=== PATIENT | female | born 1995 | race Hispanic/Latino ===

== ENCOUNTER 2017-05-20 19:56 | Inpatient (IN) | payer OTHER ==
[~2017-05-20] VITALS: Ht 152.4 cm; Wt 79.4 kg
[~2017-05-20 19:56] MED LIST: CEFTIN250 MG PO; DETROL LA4 MG PO; DOCUSATE SODIU100 MG PO; LEVAQUIN500 MG PO; NORCO 10-325 T1 EACH PO
[2017-05-20] MEDS ORDERED: ONDANSETRON HCL INJ 2 MG/ML VIAL IV STA (20:34)
[2017-05-20] MEDS ORDERED: MORPHINE SULFATE 4 MG/ML SYR IV STA (20:34)
[2017-05-20] MEDS ORDERED: SODIUM CHLORIDE 0.9% 1000ML 1,000 ML IV STA (20:34)
[2017-05-20 21:13] LABS: BASOPHILS % 0.4 % (0.0-1.0); EOSINOPHILS # (AUTO) 0.1 (0.0-0.4); EOSINOPHILS % 1.3 % (0.0-6.0); HEMATOCRIT 35.6 % (34.2-44.1); HEMOGLOBIN 11.2 g/dL (12.0-16.0); LYMPHOCYTES # (AUTO) 2.1 (1.0-3.2); LYMPHOCYTES % 20.8 % (18.0-39.1); MEAN CORPUSCULAR HEMOGLOBIN 25.8 pg (28-32); MEAN CORPUSCULAR HGB CONC 31.5 g/dL (31-35); MONOCYTES % 9.6 % (4.4-11.3); NEUTROPHILS # (AUTO) 6.8 (2.1-6.9); NEUTROPHILS % 67.6 % (38.7-80.0); PLATELET COUNT 273 x10e3/uL (140-360); RED BLOOD COUNT 4.34 x10e6/uL (3.6-5.1); RED CELL DISTRIBUTION WIDTH 15.4 % (11.7-14.4)
[2017-05-20 21:14] LABS: BILIRUBIN,URINE NEGATIVE (NEGATIVE); COLOR,URINE YELLOW (YELLOW); KETONES,URINE NEGATIVE (NEGATIVE); LEUKOCYTE ESTERASE ,URINE 2+ (NEGATIVE); NITRITE,URINE NEGATIVE (NEGATIVE); URINE UROBILINOGEN 0.2 mg/dL (0.2 - 1)
[2017-05-20 21:15] LABS: CLARITY,URINE CLOUDY (CLEAR); PROTEIN,URINE DIPSTICK 1+ (NEGATIVE)
[2017-05-20 21:17] LABS: PREGNANCY TEST, URINE POSITIVE (NEGATIVE)
[2017-05-20 21:20] LABS: BACTERIA,URINE MANY /HPF; EPITHELIAL CELLS,URINE MODERATE /LPF; WBC,URINE (MAN) 21-50 /HPF (0-5)
[2017-05-20 21:24] LABS: ALANINE AMINOTRANSFERASE 14 IU/L (0-55); ALBUMIN/GLOBULIN RATIO 1.2 (0.8-2.0); ALKALINE PHOSPHATASE 67 IU/L (40-150); ANION GAP 11.6 mmol/L (8-16); BLOOD UREA NITROGEN < 5 mg/dL (7-26); BUN/CREATININE RATIO 8 (6-25); CALCIUM 9.1 mg/dL (8.4-10.2); CARBON DIOXIDE 24 mmol/L (22-29); CHLORIDE 108 mmol/L (98-107); EST GLOMERULAR FILTRATION RATE > 60 ML/MIN (60-); GLUCOSE 88 mg/dL (74-118); POTASSIUM 3.6 mmol/L (3.5-5.1); SODIUM 140 mmol/L (136-145)
[2017-05-20] MEDS ORDERED: CEFTRIAXONE SOD 1 GM VIAL IV ONE (21:30)
--- NOTE | 2017-05-20 23:45 | Diagnostic Imaging Report ---
ADDENDUM #1 No evidence of an intrauterine or ectopic . Recommend following beta hCG trend and follow-up transvaginal ultrasound in 2 weeks as clinically indicated. Signed by: Dr. Nurys Lopez M.D. on 05/21/2017 1:08 AM ORIGINAL REPORT EXAM: US TRANSVAGINAL DATE: 05/20/2017 12:00 AM Time stamp on exam: 2322 hours INDICATION: Kidney problems, pain COMPARISON: None TECHNIQUE: Transverse and sagittal transvaginal russell scale and color doppler sonographic images of the pelvis were obtained. CLINICAL HISTORY: 1 year old A0 Last menstrual period: April 16, 2018 FINDINGS: UTERUS: 7.3 x 4.1 x 4.6 cm, anteverted Fundal fibroid measuring 2.4 x 2.2 x 2.4 cm. Normal appearance of the cervix. ENDOMETRIUM: 0.4 cm Homogeneous echotexture without focal thickening. RIGHT OVARY: 3.1 x 1.2 x 1.9 cm, Normal color flow. No abnormal ovarian cysts or masses. LEFT OVARY: 3.1 x 1.7 x 2.3 cm, Normal color flow. No abnormal ovarian cysts or masses. No adnexal masses. No free fluid in the cul-de-sac. IMPRESSION: Fundal fibroid measuring 2.4 cm, otherwise normal transvaginal pelvic ultrasound. Signed by: Dr. Nurys Lopez M.D. on 05/20/2017 11:42 PM
--- NOTE | 2017-05-20 23:47 | Diagnostic Imaging Report ---
ADDENDUM #1 Addendum: Ureteral jets are present bilaterally in keeping with ureter patency. Signed by: Dr. Shukri Kirby M.D. on 05/21/2017 10:53 AM ORIGINAL REPORT EXAM: Renal Ultrasound DATE: 05/20/2017 12:00 AM Time stamp on exam: 2305 hours INDICATION: Pain COMPARISON: None TECHNIQUE: Transverse and longitudinal sonographic images of the kidneys and bladder were obtained. FINDINGS: RIGHT KIDNEY: 12.1 x 4.2 x 1.7 cm, normal cortical thickness. Echogenicity: Normal Hydronephrosis: None Calculi: None Cyst/Mass: None LEFT KIDNEY: 13.2 x 5 x 2.1 cm, normal cortical thickness. Echogenicity: Normal Hydronephrosis: Moderate Calculi: None Cyst/Mass: None BLADDER: Normal in appearance. IMPRESSION: Moderate left hydronephrosis without cause identified by ultrasound. Signed by: Dr. Nurys Lopez M.D. on 05/20/2017 11:43 PM
[2017-05-21] VITALS (8 sets, daily range): BP systolic 92–107; BP diastolic 51–65
[2017-05-21 01:51] LABS: BILIRUBIN,URINE NEGATIVE (NEGATIVE); KETONES,URINE 1+ (NEGATIVE); LEUKOCYTE ESTERASE ,URINE 2+ (NEGATIVE); URINE UROBILINOGEN 0.2 mg/dL (0.2 - 1)
[2017-05-21 01:52] LABS: CLARITY,URINE CLOUDY (CLEAR); COLOR,URINE YELLOW (YELLOW); NITRITE,URINE POSITIVE (NEGATIVE); PROTEIN,URINE DIPSTICK 2+ (NEGATIVE)
[2017-05-21 02:00] LABS: BACTERIA,URINE MANY /HPF; EPITHELIAL CELLS,URINE FEW /LPF; WBC,URINE (MAN) >50 /HPF (0-5)
[2017-05-21] MEDS ORDERED: SODIUM CHLORIDE 0.9% 1000ML 1,000 ML IV STA (02:28)
[2017-05-21] MEDS: SODIUM CHLORIDE 0.9% 1000ML 1,000 ML IV SCH ×4 (02:28→20:59)
[2017-05-21] MEDS ORDERED: BUTORPHANOL TARTRATE INJ 1 MG/ML VIAL IV ONE (02:30)
[2017-05-21] MEDS ORDERED: ONDANSETRON HCL INJ 2 MG/ML VIAL IV PRN (02:30)
[2017-05-21] MEDS ORDERED: NO MEDS (02:40)
--- OUTSIDE RECORDS SUMMARY | 2017-05-21 02:48 | XMS REPORT ---
Author Author [facility] Address Unknown Phone Unavailable Care Team Providers Care Heel Seat Fitter Machine Name Role Phone REX CASTILLO Unavailable Unavailable Problems This patient has no known problems. Allergies, Adverse Reactions, Alerts This patient has no known allergies or adverse reactions. Medications This patient has no known medications. Results Test Description Test Time Test Comments Text Results Atomic Results Result Comments US TRANSVAGINAL [place] [address] Patient Name: JAY FRANCOIS MR #: [id number] : 1995 Age/Sex: 22/F Req #: [id number] Adm Physician: Ordered by: QUENTIN VILLAGRAN GRANULIZING MACHINE OPERATOR Report #: [id number] Location: ER Room/Bed: Procedure: [id number] US/US TRANSVAGINAL Exam Date: Exam Time: REPORT STATUS: Signed ADDENDUM #1 No evidence of an intrauterine or ectopic . Recommend following beta hCG trend and follow-up transvaginal ultrasound in 2 weeks as clinically indicated. Signed by: Dr. Sandy Lopez M.D. on 05/21/2017 1:08 AM ORIGINAL REPORT EXAM: US TRANSVAGINAL DATE: 05/20/2017 12:00 AM Time stamp on exam: 2322 hours INDICATION: Kidney problems, pain COMPARISON: None TECHNIQUE: Transverse and sagittal transvaginal russell scale and color doppler sonographic images of the pelvis were obtained. CLINICAL HISTORY : 1 year old A0 Last menstrual period: April 16, 2018 FINDINGS: UTERUS: 7.3 x 4.1 x 4.6 cm, anteverted Fundal fibroid measuring 2.4 x 2.2 x 2.4 cm. Normal appearance of the cervix. ENDOMETRIUM: 0.4 cm Homogeneous echotexture without focal thickening. RIGHT OVARY: 3.1 x 1.2 x 1.9 cm, Normal color flow. No abnormal ovarian cysts or masses. LEFT OVARY: 3.1 x 1.7 x 2.3 cm, Normal color flow. No abnormal ovarian cysts or masses. No adnexal masses. No free fluid in the cul-de-sac. IMPRESSION : Fundal fibroid measuring 2.4 cm, otherwise normal transvaginal pelvic ultrasound. Signed by: Dr. Sandy Lopez M.D. on 05/20/2017 11:42 PM Dictated By: SANDY LOPEZ MD [id number] Transcribed By: EFREN on 05/20/17 5932 COPY TO: QUENTIN VILLAGRAN NP US RENAL RETROPERITONEAL COMP [place] [address] Patient Name: JAY FRANCOIS MR #: [id number] : 1995 Age/Sex: 22/F Req #: [id number] Adm Physician: Ordered by: QUENTIN VILLAGRAN GRANULIZING MACHINE OPERATOR Report #: [id number] Location: ER Room/Bed: Procedure: [id number] US/US RENAL RETROPERITONEAL COMP Exam Date: Exam Time: REPORT STATUS: Signed EXAM: Renal Ultrasound DATE: 05/20/2017 12:00 AM Time stamp on exam: 2305 hours INDICATION: Pain COMPARISON: None TECHNIQUE: Transverse and longitudinal sonographic images of the kidneys and bladder were obtained. FINDINGS: RIGHT KIDNEY: 12.1 x 4.2 x 1.7 cm, normal cortical thickness. Echogenicity : Normal Hydronephrosis: None Calculi: None Cyst/Mass: None LEFT KIDNEY: 13.2 x 5 x 2.1 cm, normal cortical thickness. Echogenicity: Normal Hydronephrosis: Moderate Calculi: None Cyst/Mass: None BLADDER: Normal in appearance. IMPRESSION: Moderate left hydronephrosis without cause identified by ultrasound. Signed by: Dr. Sandy Lopez M.D. on 2017 11:43 PM Dictated By: SANDY LOPEZ MD [id number] Transcribed By: EFREN on 05/20/17 [id number] COPY TO: QUENTIN VILLAGRAN NP
[2017-05-21] MEDS: CEFTRIAXONE SOD 1 GM VIAL IV SCH ×2 (08:10→20:59)
--- NOTE | 2017-05-21 09:32 | Consultation ---
DATE OF CONSULTATION: May 21, 2017 UROLOGY CONSULTATION REASON FOR CONSULTATION: Hydronephrosis. HISTORY OF PRESENT ILLNESS: Dian Schreiber is a 22-year-old woman who when she was 18 years old underwent a left dismembered pyeloplasty for clinically significant left ureteropelvic junction obstruction. The patient subsequently had her stent removed. She was followed up for a year, but then failed to follow up subsequently. There is also a history of having a small kidney stone in the past. The patient had noted some gross hematuria and left flank pain for 4 days. She reported to the emergency room and was evaluated. She was found to have a positive test. This was confirmed by serum HCG. Based on the urinalysis result, I required the emergency room physician to get a catheterized urine specimen. The patient was then placed on Rocephin. The patient denies urinary incontinence and denies dysuria. She denies problems with recent urinary tract infections. PAST MEDICAL AND SURGICAL HISTORY: As above. ALLERGIES: NONE KNOWN. CURRENT MEDICATIONS: Please refer to the MAR. REVIEW OF SYSTEMS: As consistent above with the history of present illness and past medical history, and otherwise negative for all other systems. FAMILY HISTORY: Noncontributory to the active urological problems. SOCIAL HISTORY: The patient denies smoking, ethanol or drug use. 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 PHYSICAL EXAMINATION GENERAL: A healthy appearing young man lying in bed and then walking around the room in no apparent distress. VITALS: She is currently afebrile. Vital signs are currently stable. Her temperature maximum is 98.7. ABDOMEN: Soft and nondistended. Nontender except for minimal amount of tenderness in the left flank. No true costovertebral angle tenderness. Kidneys are not palpable. No hepatosplenomegaly. There is a healed left-sided flank scar. For the remaining physical examination systems, please refer to the admission history and physical, as well as the emergency room T-sheet. LABORATORY STUDIES: Renal ultrasound was performed. It revealed moderate left hydronephrosis. No stones or cysts were seen. Bladder was listed as normal, but I do not see documentation of ureteral jets being present. Vaginal ultrasound did not show any intrauterine , and repeat ultrasound was recommended. Blood and urine cultures are pending. White blood cell count is 10,060, hemoglobin low at 11.2 and platelets are normal at 273,000. The patient's creatinine is 0.6. Her serum HCG is 560. Urinalysis on the catheterized specimen showed greater than 50 wbcs, 6-10 rbcs and many bacteria, and nitrite positive urine. ASSESSMENT 1. Left hydronephrosis which may be a chronic finding. 2. Left ureteropelvic junction history. 3. History of punctate left nephrolithiasis. 4. Gross hematuria. 5. Left renal colic. 6. . 7. Anemia. 8. Complicated urinary tract infection. PLAN 1. I will order a repeat ultrasound to check the ureteral jets. 2. Recommend continuing IV antibiotics. 3. Recommend awaiting the urine culture and sensitivity and adjust antibiotics accordingly. 4. If the patient needs intervention, which she may not, then it would involve interventional radiology for a percutaneous nephrostomy. Thank you very much for involving us in the care of your patient. Will be happy to follow her along with you, as well as an outpatient. Job#: [id number] RI cc:BREE BUSTAMANTE MD
--- NOTE | 2017-05-21 14:22 | Diagnostic Imaging Report ---
Renal and pelvic ultrasound, 05/21/2017 Clinical history: Left hydronephrosis Comparison: Ultrasound May 20, 2017; renal nuclear medicine scan with Lasix January 06, 2014 Technique: Grayscale and color Doppler ultrasound kidneys and urinary bladder Findings: Right kidney: 12.9 x 4.3 x 6.5 cm. Cortical thickness 1.2 cm. Left kidney: 13.6 x 6.4 x 5.9 cm. Cortical thickness 2.6 cm. The right kidney is normal. The left kidney demonstrates normal echogenicity. There is persistent moderate hydronephrosis without evidence of stone, cyst or mass. Ureteral jets are patent and symmetric bilaterally. Prevoid urinary bladder volume: 347 mL Postvoid urinary bladder volume: 47 mL The urinary bladder is unremarkable. Impression: 1. Stable moderate left hydronephrosis without sonographic evidence of ureteral obstruction. 2. Nuclear medicine renal study from 2013 demonstrated a patulous left collecting system without evidence of ureteral obstruction. Albeit with differences in modality, yesterday and today's ultrasounds demonstrate similar findings. This report was generated with voice-recognition technology. Errors in application support analyst can occur. Please interpret accordingly and contact a radiologist if there are any questions regarding the report. Signed by: Dr. Shukri Kirby M.D. on 05/21/2017 2:18 PM
--- NOTE | 2017-05-21 14:22 | Diagnostic Imaging Report ---
Renal and pelvic ultrasound, 05/21/2017 Clinical history: Left hydronephrosis Comparison: Ultrasound May 20, 2017; renal nuclear medicine scan with Lasix January 06, 2014 Technique: Grayscale and color Doppler ultrasound kidneys and urinary bladder Findings: Right kidney: 12.9 x 4.3 x 6.5 cm. Cortical thickness 1.2 cm. Left kidney: 13.6 x 6.4 x 5.9 cm. Cortical thickness 2.6 cm. The right kidney is normal. The left kidney demonstrates normal echogenicity. There is persistent moderate hydronephrosis without evidence of stone, cyst or mass. Ureteral jets are patent and symmetric bilaterally. Prevoid urinary bladder volume: 347 mL Postvoid urinary bladder volume: 47 mL The urinary bladder is unremarkable. Impression: 1. Stable moderate left hydronephrosis without sonographic evidence of ureteral obstruction. 2. Nuclear medicine renal study from 2013 demonstrated a patulous left collecting system without evidence of ureteral obstruction. Albeit with differences in modality, yesterday and today's ultrasounds demonstrate similar findings. This report was generated with voice-recognition technology. Errors in functional skills tutor can occur. Please interpret accordingly and contact a radiologist if there are any questions regarding the report. Signed by: Dr. Shukri Kirby M.D. on 05/21/2017 2:18 PM
[2017-05-22] VITALS: BP 112/69
[2017-05-22 03:45] VITALS: BP 110/65
[2017-05-22] MEDS: SODIUM CHLORIDE 0.9% 1000ML 1,000 ML IV SCH ×2 (03:46→20:08)
[2017-05-22 06:12] LABS: BASOPHILS % 0.5 % (0.0-1.0); EOSINOPHILS # (AUTO) 0.1 (0.0-0.4); EOSINOPHILS % 1.8 % (0.0-6.0); HEMATOCRIT 31.3 % (34.2-44.1); HEMOGLOBIN 10.1 g/dL (12.0-16.0); LYMPHOCYTES # (AUTO) 1.9 (1.0-3.2); LYMPHOCYTES % 29.1 % (18.0-39.1); MEAN CORPUSCULAR HEMOGLOBIN 26.4 pg (28-32); MEAN CORPUSCULAR HGB CONC 32.3 g/dL (31-35); MEAN CORPUSCULAR VOLUME 81.7 fL (81-99); MONOCYTES # (AUTO) 0.8 (0.2-0.8); MONOCYTES % 11.8 % (4.4-11.3); NEUTROPHILS # (AUTO) 3.8 (2.1-6.9); NEUTROPHILS % 56.5 % (38.7-80.0); PLATELET COUNT 227 x10e3/uL (140-360); RED BLOOD COUNT 3.83 x10e6/uL (3.6-5.1); RED CELL DISTRIBUTION WIDTH 15.6 % (11.7-14.4)
[2017-05-22 06:30] LABS: ALANINE AMINOTRANSFERASE 11 IU/L (0-55); ALBUMIN 3.1 g/dL (3.5-5.0); ALBUMIN/GLOBULIN RATIO 1.1 (0.8-2.0); ALKALINE PHOSPHATASE 51 IU/L (40-150); ANION GAP 10.5 mmol/L (8-16); BLOOD UREA NITROGEN < 5 mg/dL (7-26); CALCIUM 8.4 mg/dL (8.4-10.2); CARBON DIOXIDE 21 mmol/L (22-29); CHLORIDE 113 mmol/L (98-107); CREATININE, SERUM 0.58 mg/dL (0.57-1.11); EST GLOMERULAR FILTRATION RATE > 60 ML/MIN (60-); GLUCOSE 83 mg/dL (74-118); POTASSIUM 3.5 mmol/L (3.5-5.1); SODIUM 141 mmol/L (136-145)
[2017-05-22 06:43] LABS: BUN/CREATININE RATIO 9 (6-25)
[2017-05-22] MEDS: CEFTRIAXONE SOD 1 GM VIAL IV SCH ×2 (09:35→20:08)
[2017-05-22 12:31] VITALS: BP 109/55
--- NOTE | 2017-05-22 16:14 | Consultation ---
DATE OF CONSULTATION: May 22, 2017 She is a 22-year-old 0, last menstrual period 04/16/2017 who came in with left flank pain and left lower quadrant crampy pain that was building up over the last 4 days, getting worse, nausea but no vomiting, no dysuria. She had a history of left kidney problems in the past and pyeloplasty by Dr. Stuart. She is using condoms for contraception. She denies any bleeding or uterine cramps. PAST MEDICAL HISTORY: Not significant. PAST SURGICAL HISTORY: Kidney surgery and hydronephrosis. ALLERGIES: NO KNOWN DRUG ALLERGIES. MEDICATIONS: She is on no medications. SOCIAL HISTORY: On admission, she smokes about 1-2 cigarettes a day and alcohol about 2-3 drinks a week. REVIEW OF SYSTEMS: She denies any cardiovascular, respiratory, mental, musculoskeletal, gastrointestinal, psychiatric or hemopoietic system problems. PHYSICAL EXAMINATION VITAL SIGNS: Stable. CHEST: Clear to auscultation. CARDIOVASCULAR: Regular rate and rhythm. ABDOMEN: Soft and nontender. ASSESSMENT AND PLAN: A 22-year-old 0 with last menstrual period 04/16/2017 with positive test, blood hCG level of 561. However, her ultrasound showed intrauterine at this stage, which is not uncommon due to being an early . I advised her to repeat the ultrasound in a week's time and also if critical procedure to be performed by the urologist or life threatening condition, then absolutely fine; however, I recommend postponing any surgery until at least the second trimester. Once again, thank you for asking me to see this patient. Please do not hesitate to call me if I can be of any further help in the future. Job#: [id number] cc:BREE BUSTAMANTE MD
[2017-05-22 16:21] VITALS: BP 104/60
[2017-05-22 20:00] VITALS: BP 104/62
[2017-05-23] VITALS: BP 108/61
[2017-05-23 04:00] VITALS: BP 97/66
[2017-05-23] MEDS: SODIUM CHLORIDE 0.9% 1000ML 1,000 ML IV SCH ×3 (05:56→17:13)
[2017-05-23] MEDS: CEFTRIAXONE SOD 1 GM VIAL IV SCH ×2 (08:46→21:31)
[2017-05-23 09:28] VITALS: BP 98/62
[2017-05-23 12:33] VITALS: BP 103/59
[2017-05-23 16:00] VITALS: BP 109/55
[2017-05-23 20:00] VITALS: BP 107/61
[2017-05-24] VITALS: BP 113/59
[2017-05-24] MEDS: SODIUM CHLORIDE 0.9% 1000ML 1,000 ML IV SCH (02:28)
[2017-05-24 04:00] VITALS: BP 86/52
[2017-05-24] MEDS: CEFTRIAXONE SOD 1 GM VIAL IV SCH (07:53)
[2017-05-24 08:11] VITALS: BP 98/61
[2017-05-24 12:39] VITALS: BP 93/55
== END 2017-05-24 14:51 | disposition home or self-care (01) | DRG 690 ==
LOC: ER 19:56 → ERHOLD 05-21 02:44 → MED/SURG2 05-21 02:47
PROVIDERS: ADMIT Internal Medicine; ATTEND Internal Medicine
DX: N13.6 Pyonephrosis (principal); D64.9 Anemia, unspecified; Z3A.00 Weeks of gestation of pregnancy not specified; N23 Unspecified renal colic; Z33.1 Pregnant state, incidental; Z87.442 Personal history of urinary calculi; R31.9 Hematuria, unspecified
CPT/HCPCS: 36415; 76770; 76830; 76857; 80053; 81001; 81025; 82948; 83605; 84702; 85025; 87040; 87086; 87186; 99284; J0696; J2405; J7030

== ENCOUNTER → 2017-07-24 | Outpatient (CLI) | payer OTHER ==
[~2017-07-24] MED LIST changes: +FUROSEMIDE INJ 10 MG/ML 4 ML VIAL ONE; +NO MEDS
--- NOTE | 2017-07-24 19:18 | Diagnostic Imaging Report ---
Renal Scan with Lasix Washout Clinical information: 22 F with stricture of ureter; frequent UTI's since 2014 Technique: Following intravenous administration of 10 mCi of Tc-99m MAG3, dynamic images of the kidneys in the posterior projection were obtained through 40 minutes. Lasix 40 mg was administered intravenously at 10 minutes post injection of the tracer. Report: Left kidney: Perfusion of the left kidney is prompt. The kidney has a an enlarged, elongated oval shape with moderate thinning of the renal cortex.. Extraction of tracer from the blood pool is normal. Clearance of tracer from the renal parenchyma is prolonged. The pelvicalyceal system is moderately dilated. Increased pooling of tracer within the pelvicalyceal system is seen. No net drainage of tracer from the pelvicalyceal system is seen prior to administration of Lasix. Washout of tracer from the pelvicalyceal system following administration of Lasix is rapid with a T-1/2 of 10 minutes (normal less than 15 minutes). No significant stasis of tracer is seen within the left ureter. Right kidney: Perfusion to the right kidney is prompt. The right kidney has a normal reniform shape. Extraction of tracer by the renal parenchyma is normal. Clearance of tracer from the renal parenchyma is prompt. The pelvicalyceal system is not dilated. Physiologic pooling of tracer within the pelvicalyceal system is seen. Drainage of tracer from the pelvicalyceal system is prompt and adequate prior to administration of Lasix. No significant stasis of tracer is seen within the right ureter. Differential renal function: The left kidney contributes 51% of total renal function and the right kidney contributes 49% (normal 43-57%). Impression: 1. The left kidney shows evidence of chronic obstructed uropathy evidenced by elongated shape, thinning of the renal cortex and prolonged clearance of tracer from the renal parenchyma. The pelvicalyceal system is dilated. No physiologically significant obstruction of the renal collecting system is present. Overall, the function of the left kidney is preserved. 2. The function of the right kidney is generally normal. No hydronephrosis is present. No physiologically significant obstruction of the renal collecting system is present. Signed by: Dr. Delilah Miles M.D. on 07/24/2017 7:14 PM
== END ==
LOC: NM 14:06
PROVIDERS: ATTEND Urology
DX: N39.0 Urinary tract infection, site not specified (principal); N13.1 Hydronephrosis with ureteral stricture, not elsewhere classified
CPT/HCPCS: 78708; 81025; A9562; J1940

== ENCOUNTER 2024-01-30 18:51 | Emergency (ER) | payer BC, OTHER ==
[~2024-01-30] VITALS: Ht 152.4 cm; Wt 79.4 kg
[~2024-01-30 18:51] MED LIST changes: -FUROSEMIDE INJ 10 MG/ML 4 ML VIAL ONE
[2024-01-30 19:09] VITALS: PULSE 68; RESP 20; TEMP 99.1
[2024-01-30] MEDS: ONDANSETRON HCL 4 MG ORAL DISINTEGRATING TAB PO STA (19:23)
[2024-01-30 19:31] LABS: PREGNANCY TEST, URINE NEGATIVE (NEGATIVE)
[2024-01-30 19:32] LABS: BILIRUBIN,URINE NEGATIVE (NEGATIVE); CLARITY,URINE HAZY (CLEAR); COLOR,URINE YELLOW (YELLOW); GLUCOSE, URINE NEGATIVE (NEGATIVE); KETONES,URINE NEGATIVE (NEGATIVE); LEUKOCYTE ESTERASE ,URINE LARGE (NEGATIVE); NITRITE,URINE POSITIVE (NEGATIVE); PH,URINE 7 (5 - 7); PROTEIN,URINE DIPSTICK 2+ (NEGATIVE); URINE UROBILINOGEN 0.2 mg/dL (0.2 - 1)
[2024-01-30 19:35] LABS: BACTERIA,URINE MANY /HPF; EPITHELIAL CELLS,URINE MANY /LPF; RBC,URINE 0-5 /HPF (0-5); WBC,URINE (MAN) >50 /HPF (0-5)
[2024-01-30] MEDS: KETOROLAC TROMETHAMINE 60 MG/2 ML VIAL IM STA (19:49)
[2024-01-30] MEDS ORDERED: AMOX TR-K CLV1 EAC1 PO (21:37)
[2024-01-30] MEDS ORDERED: KETOROLAC TROME10 MG PO (21:38)
[2024-01-30 21:47] VITALS: BP 122/80; PULSE 62; RESP 19; TEMP 99; O2SAT 99
== END 2024-01-30 21:48 | disposition home or self-care (01) ==
LOC: ER 18:58
DX: M54.50 Low back pain, unspecified (principal); N13.6 Pyonephrosis
CPT/HCPCS: 74176; 81001; 81025; 87086; 87186; 99283; J1885; Q0162

== ENCOUNTER → 2024-03-14 | Day surgery (SDC) | payer BC ==
[~2024-03-14] MED LIST changes: +AMOX TR-K CLV1 EAC1 PO; +DEXAMETHASONE SOD PHOS INJ 4 MG/ML SDV ONE; +DIPHENHYDRAMINE HCL INJ 50 MG/ML VIAL ONE; +FAMOTIDINE 20 MG/2 ML VIAL IV ONE; +FENTANYL CITRATE/PF 100MCG/2 ML INJ ONE; +GLYCOPYRROLATE INJ 0.2 MG/ML VIAL ONE; +KETOROLAC TROME10 MG PO; +KETOROLAC TROMETHAMINE 30 MG/ML VIAL ONE; +LIDOCAINE HCL 2% LOCAL INJ 5 ML SDV VIAL INJ ONE; +MIDAZOLAM HCL 2 MG/2 ML VIAL ONE; +ONDANSETRON HCL INJ 2MG/ML 2ML 2 MG/ML VIAL ONE; +PROPOFOL IV EMULSION 10 MG/ML 20 ML VIAL ONE
[2024-03-14] MEDS: LACTATED RINGER'S 1,000 ML ONE (12:36)
[2024-03-14] MEDS: CEFTRIAXONE 1 GM VIAL ONE (12:37)
[2024-03-14 12:45] LABS: BASOPHILS # (AUTO) 0.1 (0.0-0.1); BASOPHILS % 0.7 % (0.0-1.0); EOSINOPHILS # (AUTO) 0.3 (0.0-0.4); EOSINOPHILS % 3.6 % (0.0-6.0); HEMATOCRIT 39.9 % (34.2-44.1); HEMOGLOBIN 12.1 g/dL (12.0-16.0); LYMPHOCYTES # (AUTO) 1.8 (1.0-3.2); LYMPHOCYTES % 24.5 % (18.0-39.1); MEAN CORPUSCULAR HGB CONC 30.3 g/dL (31-35); MEAN CORPUSCULAR VOLUME 85.6 fL (81-99); MONOCYTES # (AUTO) 0.6 (0.2-0.8); MONOCYTES % 7.7 % (4.4-11.3); NEUTROPHILS # (AUTO) 4.6 (2.1-6.9); NEUTROPHILS % 63.4 % (38.7-80.0); PLATELET COUNT 293 x10e3/uL (140-360); RED BLOOD COUNT 4.66 x10e6/uL (3.6-5.1); WHITE BLOOD COUNT 7.18 x10e3/uL (4.8-10.8)
[2024-03-14 13:11] LABS: ALBUMIN 4.1 g/dL (3.5-5.0); ALBUMIN/GLOBULIN RATIO 1.1 (0.8-2.0); ANION GAP 15.6 mmol/L (8-16); BILIRUBIN,TOTAL 0.4 mg/dL (0.2-1.2); CALCIUM 9.8 mg/dL (8.4-10.2); CREATININE, SERUM 0.69 mg/dL (0.57-1.11); POTASSIUM 3.6 mmol/L (3.5-5.1); TOTAL PROTEIN 7.7 g/dL (6.5-8.1)
[2024-03-14 15:08] VITALS: TEMP 97.2
[2024-03-14] MEDS: PHENAZOPYRIDINE HCL 100 MG TAB ONE (15:41)
[2024-03-14 16:15] VITALS: BP 130/81; PULSE 88; RESP 16; O2SAT 99
[2024-03-15 08:15] LABS: CALCIUM 9.4 mg/dL (8.7-10.2)
== END | disposition home or self-care (01) ==
LOC: OR 11:55
PROVIDERS: ATTEND Urology
DX: N20.0 Calculus of kidney (principal); N13.30 Unspecified hydronephrosis; N13.5 Crossing vessel and stricture of ureter without hydronephrosis; N39.0 Urinary tract infection, site not specified; N81.10 Cystocele, unspecified; F17.200 Nicotine dependence, unspecified, uncomplicated; Z68.36 Body mass index [BMI] 36.0-36.9, adult; Z86.2 Personal history of diseases of the blood and blood-forming organs and certain disorders involving the immune mechanism; Z84.1 Family history of disorders of kidney and ureter
CPT/HCPCS: 36415; 52332; 52352; 74018; 74420; 80053; 81025; 83970; 84550; 85025; 87086; 87186; 88300; C1758; C1766; C1769; C2617; J0696; J1100; J1200; J1885; J2003; J2250; J2405; J2704; J3010; J7121

== ENCOUNTER → 2024-06-01 | Outpatient (REF) | payer BC ==
[~2024-06-01] MED LIST changes: -DEXAMETHASONE SOD PHOS INJ 4 MG/ML SDV ONE; -DIPHENHYDRAMINE HCL INJ 50 MG/ML VIAL ONE; -FAMOTIDINE 20 MG/2 ML VIAL IV ONE; -FENTANYL CITRATE/PF 100MCG/2 ML INJ ONE; +FUROSEMIDE INJ 10 MG/ML 4 ML VIAL ONE; -GLYCOPYRROLATE INJ 0.2 MG/ML VIAL ONE; -KETOROLAC TROMETHAMINE 30 MG/ML VIAL ONE; -LIDOCAINE HCL 2% LOCAL INJ 5 ML SDV VIAL INJ ONE; -MIDAZOLAM HCL 2 MG/2 ML VIAL ONE; -ONDANSETRON HCL INJ 2MG/ML 2ML 2 MG/ML VIAL ONE; -PROPOFOL IV EMULSION 10 MG/ML 20 ML VIAL ONE
== END ==
LOC: NM 12:47
PROVIDERS: ATTEND Urology
DX: N13.30 Unspecified hydronephrosis (principal)
CPT/HCPCS: 78708; 81025; A9562; J1940

== ENCOUNTER → 2024-11-10 | Outpatient (REF) | payer BC ==
[~2024-11-10] MED LIST changes: -FUROSEMIDE INJ 10 MG/ML 4 ML VIAL ONE
== END ==
LOC: RAD 10:25
PROVIDERS: ATTEND Urology
DX: N20.0 Calculus of kidney (principal); T19.1XXA Foreign body in bladder, initial encounter
CPT/HCPCS: 74018; 81025

== ENCOUNTER → 2024-12-02 | Outpatient (REF) | payer BC | LOC: CT 15:57 | PROVIDERS: ATTEND Urology | DX: N20.0 Calculus of kidney (principal) | CPT/HCPCS: 74176; 81025 ==